=== PATIENT | female | born 1955 | race Caucasian/White ===

== ENCOUNTER 2017-06-20 09:53 | Outpatient (CLI) | payer BC ==
--- NOTE | 2017-06-20 10:23 | RAD ---
RIGHT HAND THREE VIEWS: History: Right hand pain. FINDINGS/IMPRESSION: The bones are osteopenic. No fracture or dislocation is identified. A negative ulnar variance is note d. There are mild degenerative changes. POS: [facility]
== END 2017-06-20 09:54 | disposition home or self-care (01) ==
LOC: RAD-FRANK 09:53
PROVIDERS: ATTEND Nurse Practitioner Family
DX: M79.641 Pain in right hand (principal); M19.041 Primary osteoarthritis, right hand; M85.841 Other specified disorders of bone density and structure, right hand

== ENCOUNTER 2019-08-13 10:31 | Outpatient (CLI) | payer BC ==
--- NOTE | 2019-08-13 10:45 | RAD ---
RADIOGRAPH CHEST 2 VIEW: DATE: 08/13/2019 HISTORY: 64-year-old female with chest wall pain FINDINGS: There is hyperinflation of the lungs, consistent with COPD. There is no evidence of airspace density, pulmonary edema, cardiomegaly, pleural effusion, or pneumothorax. Chronic biapical pulmonary changes, right greater than left. IMPRESSION: 1) No acute cardiopulmonary findings. 2) emphysema.
== END 2019-08-13 10:32 | disposition home or self-care (01) ==
LOC: RAD-FRANK 10:31
PROVIDERS: ATTEND Nurse Practitioner Family
DX: R07.89 Other chest pain (principal); J43.9 Emphysema, unspecified
CPT/HCPCS: 71046

== ENCOUNTER 2020-04-22 09:20 | Emergency (ER) | payer SELFPAY ==
--- NOTE | 2020-04-22 09:50 | RAD ---
Portable chest: HISTORY: Chest pain COMPARISON: 08/13/2019 FINDINGS: Lung peralta are clear. Heart and mediastinum appear unremarkable. Vascularity is normal. Visualized osseous structures unremarkable. IMPRESSION: No acute finding
[2020-04-22] MEDS ORDERED: Fentanyl 100 MCG/2 ML VIAL ONE (10:19)
[2020-04-22 10:34] LABS: Mean Corpuscular HGB CONC 32.6 g/dL (32.0-36.0); Mean Corpuscular Hemoglobin 36.5 pg (27.0-31.0); Mean Platelet Volume 7.2 fL (7.4-10.4); Platelet Count 288 thou/uL (130-400); RBC Distribution Width 13.2 % (11.5-14.5); Red Blood Cell (RBC) Count 3.85 mill/uL (4.20-5.40)
[2020-04-22 10:35] LABS: #Lymphocytes 1.1 thou/uL (1.20-3.40); #Monocytes 0.4 thou/uL (0.11-0.59); #Neutrophils 5.4 thou/uL (1.40-6.50); %Basophils 0.5 % (0.0-1.0); %Eosinophils 0.7 % (0.0-10.0); %Monocytes 5.5 % (0.0-10.0); %Neutrophils 77.4 % (42.0-75.0)
[2020-04-22 10:48] LABS: ALT (SGPT) 18 U/L (8-55); AST (SGOT) 37 U/L (5-34); Albumin 3.2 g/dL (3.4-4.8); Alkaline Phosphatase 245 U/L (40-110); Anion Gap 14 mmol/L (10-20); BUN (Urea Nitrogen) Less than 4 mg/dL (9.8-20.1); Bilirubin, Total 0.5 mg/dL (0.2-1.2); CK (CPK) 26 U/L (29-168); Calc. Creatinine Clearance 0 mL/min (70-130); Carbon Dioxide 24 mmol/L (23-31); Chloride 103 mmol/L (98-107); Globulin 2.9 g/dL (2.4-3.5); Glucose 84 mg/dL (80-115); Lipase 6 U/L (8-78); Potassium 4.3 mmol/L (3.5-5.1); Protein, Total 6.1 g/dL (5.8-8.1); Sodium 137 mmol/L (136-145)
[2020-04-22 11:00] LABS: MDiff Complete? YES; Macrocytosis SLIGHT = 6-15 cells (100X) (0-5/hpf); Platelet Morphology Comment Appears Adequate; Polychromasia SLIGHT = 2-3 cells (100X) (0-2/hpf); Stomatocytes SLIGHT = 2-5 cells (100X) (0-1/hpf)
--- NOTE | 2020-04-26 16:48 | EKG ---
Test Reason : Blood Pressure : / mmHG Vent. Rate : 089 BPM Atrial Rate : 089 BPM P-R Int : 124 ms QRS Dur : 074 ms QT Int : 378 ms P-R-T Axes : 080 075 072 degrees QTc Int : 459 ms Normal sinus rhythm Low voltage QRS Septal infarct , age undetermined Abnormal ECG Confirmed by MERLINE José, DAVID ([id number]), continuity editor HUBERT LEHMAN ([id number]) on 04/26/2020 4:48:29 PM Referred By: Confirmed By:DAVID RICK M.D.
== END 2020-04-22 12:35 | disposition home or self-care (01) ==
LOC: ERS 09:20
DX: R07.89 Other chest pain (principal); J43.9 Emphysema, unspecified; F17.210 Nicotine dependence, cigarettes, uncomplicated
CPT/HCPCS: 36415; 71045; 80053; 82550; 83690; 84484; 85025; 93005; 94760; 96374; J3010

== ENCOUNTER 2022-03-10 16:31 | Inpatient (IN) | payer BC, MEDICARE, SELFPAY ==
[2022-03-10 17:08] LABS: Hemoglobin 12.6 g/dL (12.0-16.0); Mean Corpuscular HGB CONC 31.9 g/dL (32.0-36.0); Mean Platelet Volume 7.1 fL (7.4-10.4); Platelet Count 338 10x3/uL (130-400); RBC Distribution Width 14.4 % (11.5-14.5); White Blood Cell (WBC) Count 14.3 10x3/uL (4.8-10.8)
[2022-03-10] MEDS ORDERED: cefTRIAXone\\ROCEPHIN 1 GM VIAL ONE (17:18)
[2022-03-10 17:21] LABS: ALT (SGPT) 11 U/L (8-55); AST (SGOT) 22 U/L (5-34); Albumin 2.8 g/dL (3.4-4.8); Alkaline Phosphatase 129 U/L (40-110); Anion Gap 21 mmol/L (10-20); BUN (Urea Nitrogen) 9 mg/dL (9.8-20.1); Bilirubin, Total 0.7 mg/dL (0.2-1.2); Calc. Creatinine Clearance 0 mL/min (70-130); Calcium 7.8 mg/dL (7.8-10.44); Carbon Dioxide 22 mmol/L (23-31); Chloride 92 mmol/L (98-107); Estimated GFR 100; Globulin 2.7 g/dL (2.4-3.5); Glucose 143 mg/dL (80-115); Potassium 5.6 mmol/L (3.5-5.1); Protein, Total 5.5 g/dL (5.8-8.1); Sodium 129 mmol/L (136-145)
[2022-03-10 17:29] LABS: Band 19 % (5-11); Lymphocytes 6 % (21-51); MDiff Complete? YES; Macrocytosis SLIGHT = 6-15 cells (100X) (0-5/hpf); Monocytes 6 % (0-10); Neutrophil 69 % (42-75); Platelet Morphology Comment Appears Adequate
[2022-03-10] MEDS ORDERED: Azithromycin 500 MG VIAL ONE (18:06)
[2022-03-10 20:00] VITALS: BMI 15.5
[2022-03-10] MEDS ORDERED: Ondansetron ODT 4 MG TAB PO PRN (21:59)
[2022-03-10] MEDS ORDERED: Acetaminophen 325 MG TAB PO PRN (21:59)
[2022-03-10] MEDS ORDERED: Acetaminophen 650 MG Suppository PR PRN (21:59)
[2022-03-10] MEDS ORDERED: Ondansetron PF 4 MG/2 ML Vial IVP PRN (21:59)
[2022-03-10 22:21] LABS: SARS-CoV-2 NAA Rapid Test Not Detected (NotDetected)
[2022-03-11] MEDS ORDERED: Ipratropium/Albuterol 3 ML NEB NEB PRN (00:25)
[2022-03-11] MEDS: Sodium Chloride 0.9% 1,000 ML IV SCH ×3 (00:46→20:44)
[2022-03-11 01:47] LABS: Anion Gap 14 mmol/L (10-20); BUN (Urea Nitrogen) 8 mg/dL (9.8-20.1); Calc. Creatinine Clearance 64 mL/min (70-130); Calcium 7.5 mg/dL (7.8-10.44); Carbon Dioxide 22 mmol/L (23-31); Chloride 99 mmol/L (98-107); Estimated GFR 104; Glucose 128 mg/dL (80-115); Potassium 4.1 mmol/L (3.5-5.1); Sodium 131 mmol/L (136-145)
[2022-03-11 05:09] LABS: Hemoglobin 9.8 g/dL (12.0-16.0); Mean Corpuscular HGB CONC 32.2 g/dL (32.0-36.0); Mean Corpuscular Hemoglobin 36.5 pg (27.0-31.0); Mean Platelet Volume 7.5 fL (7.4-10.4); Platelet Count 233 10x3/uL (130-400); RBC Distribution Width 14.6 % (11.5-14.5); Red Blood Cell (RBC) Count 2.69 mill/uL (4.20-5.40)
[2022-03-11 05:14] LABS: Anion Gap 14 mmol/L (10-20); BUN (Urea Nitrogen) 7 mg/dL (9.8-20.1); Calc. Creatinine Clearance 67 mL/min (70-130); Calcium 7.5 mg/dL (7.8-10.44); Carbon Dioxide 21 mmol/L (23-31); Chloride 101 mmol/L (98-107); Estimated GFR 105; Glucose 103 mg/dL (80-115); Sodium 132 mmol/L (136-145)
[2022-03-11 06:01] LABS: Band 12 % (5-11); Lymphocytes 6 % (21-51); MDiff Complete? YES; Monocytes 7 % (0-10); Neutrophil 75 % (42-75)
[2022-03-11] MEDS ORDERED: Acetaminophen 325 MG TAB ONE (13:17)
[2022-03-11] MEDS ORDERED: Acetaminophen 325 MG/10.15 ML UDCUP ONE (13:20)
[2022-03-11] MEDS ORDERED: Azithromycin 500 MG VIAL ONE (17:17)
[2022-03-11] MEDS ORDERED: cefTRIAXone\\ROCEPHIN 1 GM VIAL ONE (17:17)
[2022-03-11] MEDS: Azithromycin 500 MG in Sodium Chloride 0.9% 250 ML 250 ML IVPB SCH (17:34)
[2022-03-11] MEDS: cefTRIAXone\\ROCEPHIN 1 GM in Sodium Chloride 0.9% 100 ML IVPB SCH (17:35)
[2022-03-11] MEDS: Acetaminophen 650 MG/20.3 ML UDCUP PO PRN (20:58)
[2022-03-12] MEDS: Sodium Chloride 0.9% 1,000 ML IV SCH (04:52)
[2022-03-12] MEDS: Acetaminophen 650 MG/20.3 ML UDCUP PO PRN ×2 (08:19→19:12)
[2022-03-12] MEDS ORDERED: Acetaminophen W/ Codeine 5 ML UDCUP PO PRN (09:29)
[2022-03-12] MEDS ORDERED: Lidocaine 5% Patch TD SCH (09:30)
[2022-03-12] MEDS: tiZANidine HCl 4 MG TAB PO SCH ×2 (10:29→20:08)
[2022-03-12] MEDS ORDERED: Calcium Carbonate 500 MG ChewTAB PO PRN (14:27)
[2022-03-12] MEDS: cefTRIAXone\\ROCEPHIN 1 GM in Sodium Chloride 0.9% 100 ML IVPB SCH (16:44)
[2022-03-12] MEDS: Azithromycin 500 MG in Sodium Chloride 0.9% 250 ML 250 ML IVPB SCH (16:49)
[2022-03-12] MEDS: Budesonide 0.25 MG/2 ML NEB INH SCH (19:01)
[2022-03-12] MEDS: Ipratropium/Albuterol 3 ML NEB NEB PRN (19:02)
[2022-03-12] MEDS: guaiFENesin ER 600 MG TAB PO SCH (20:09)
[2022-03-12] MEDS: Transdermal Patch Removal TOP SCH (21:24)
[2022-03-13] MEDS ORDERED: Sodium Chloride 0.9% 500 ML IV SCH ×2 (01:15→01:45)
[2022-03-13] MEDS ORDERED: Benzonatate 100 MG CAP PO PRN (02:53)
[2022-03-13] MEDS: Ipratropium/Albuterol 3 ML NEB NEB PRN ×3 (02:53→18:55)
[2022-03-13] MEDS ORDERED: GUAIFENESIN SF SOLN 200 MG/10 ML UDCUP PO PRN (02:53)
[2022-03-13 06:32] LABS: #Monocytes 0.5 thou/uL (0.11-0.59); #Neutrophils 3.9 thou/uL (1.40-6.50); %Basophils 0.3 % (0.0-1.0); %Eosinophils 0.8 % (0.0-10.0); %Lymphocytes 18.1 % (21.0-51.0); %Monocytes 9.8 % (0.0-10.0); Hemoglobin 10.2 g/dL (12.0-16.0); Mean Corpuscular HGB CONC 31.9 g/dL (32.0-36.0); Mean Corpuscular Hemoglobin 37.5 pg (27.0-31.0); Platelet Count 293 10x3/uL (130-400); RBC Distribution Width 14.5 % (11.5-14.5); Red Blood Cell (RBC) Count 2.72 mill/uL (4.20-5.40); White Blood Cell (WBC) Count 5.5 10x3/uL (4.8-10.8)
[2022-03-13 06:51] LABS: Anion Gap 10 mmol/L (10-20); BUN (Urea Nitrogen) 6 mg/dL (9.8-20.1); Calc. Creatinine Clearance 80 mL/min (70-130); Carbon Dioxide 19 mmol/L (23-31); Chloride 114 mmol/L (98-107); Estimated GFR 110; Glucose 71 mg/dL (80-115); Potassium 3.2 mmol/L (3.5-5.1); Sodium 140 mmol/L (136-145)
[2022-03-13 06:54] LABS: Calcium 6.8 mg/dL (7.8-10.44)
[2022-03-13] MEDS: Budesonide 0.25 MG/2 ML NEB INH SCH ×2 (07:33→18:55)
[2022-03-13] MEDS: tiZANidine HCl 4 MG TAB PO SCH (08:13)
[2022-03-13] MEDS: guaiFENesin ER 600 MG TAB PO SCH ×2 (08:13→21:35)
[2022-03-13] MEDS: Lidocaine 5% Patch TD SCH (08:21)
[2022-03-13] MEDS ORDERED: Iopamidol-370 76% 500 ML 1 ML ONE (10:12)
[2022-03-13 10:20] LABS: Thyroid Stimulating Hormone 0.8044 uIU/mL (0.35-4.94); Vitamin B12 534 pg/mL (211-911); Vitamin D, 25 Hydroxy Less than 3.4 ng/ml (> 30.0)
[2022-03-13] MEDS: Calcium Carbonate 500 MG ChewTAB PO SCH ×3 (11:34→20:34)
[2022-03-13] MEDS: Acetaminophen 650 MG/20.3 ML UDCUP PO PRN (11:37)
[2022-03-13] MEDS ORDERED: Albumin 25% 25 GM/100 ML BOT IVPB SCH (12:00)
[2022-03-13] MEDS: cefTRIAXone\\ROCEPHIN 1 GM in Sodium Chloride 0.9% 100 ML IVPB SCH (17:11)
[2022-03-13] MEDS: Azithromycin 500 MG in Sodium Chloride 0.9% 250 ML 250 ML IVPB SCH (17:16)
[2022-03-13] MEDS ORDERED: Cepastat Lozenges 1 LOZ PO PRN (20:57)
[2022-03-13] MEDS: Transdermal Patch Removal TOP SCH (21:35)
[2022-03-14] MEDS: Budesonide 0.25 MG/2 ML NEB INH SCH ×2 (07:04→19:13)
[2022-03-14 07:38] LABS: Iron 16 ug/dL (50-170); Iron Binding Capacity, Total 66 mcg/dL (265-497)
[2022-03-14] MEDS ORDERED: Ergocalciferol 1.25 MG(50,000 UNITS) CAP PO SCH (09:00)
[2022-03-14] MEDS: Calcium Carbonate 500 MG ChewTAB PO SCH ×4 (09:24→20:30)
[2022-03-14] MEDS: Folic Acid 1 MG TAB PO SCH (09:24)
[2022-03-14] MEDS: Lidocaine 5% Patch TD SCH (09:24)
[2022-03-14] MEDS: guaiFENesin ER 600 MG TAB PO SCH ×2 (09:24→21:22)
[2022-03-14 16:43] LABS: Campy jejuni + coli by PCR Negative (Negative); STEC Shiga Toxin 1+2 Negative (Negative); Salmonella spp. by PCR Negative (Negative); Shigella spp + EIEC by PCR Negative (Negative)
[2022-03-14] MEDS: cefTRIAXone\\ROCEPHIN 1 GM in Sodium Chloride 0.9% 100 ML IVPB SCH (17:02)
[2022-03-14] MEDS: Ipratropium/Albuterol 3 ML NEB NEB PRN (19:13)
[2022-03-14] MEDS: Transdermal Patch Removal TOP SCH (21:22)
[2022-03-15] MEDS: Budesonide 0.25 MG/2 ML NEB INH SCH ×2 (06:56→18:47)
[2022-03-15 08:29] LABS: #Eosinphils 0.1 thou/uL (0.0-0.7); #Lymphocytes 0.7 thou/uL (1.20-3.40); #Monocytes 0.7 thou/uL (0.11-0.59); #Neutrophils 6.6 thou/uL (1.40-6.50); %Basophils 0.3 % (0.0-1.0); %Lymphocytes 8.3 % (21.0-51.0); %Monocytes 8.3 % (0.0-10.0); %Neutrophils 82.1 % (42.0-75.0); Hemoglobin 10.7 g/dL (12.0-16.0); Mean Corpuscular HGB CONC 31.1 g/dL (32.0-36.0); Mean Corpuscular Hemoglobin 35.8 pg (27.0-31.0); Mean Platelet Volume 9.1 fL (7.4-10.4); Platelet Count 170 10x3/uL (130-400); Red Blood Cell (RBC) Count 2.99 mill/uL (4.20-5.40); White Blood Cell (WBC) Count 8.1 10x3/uL (4.8-10.8)
[2022-03-15] MEDS: Lidocaine 5% Patch TD SCH (09:27)
[2022-03-15] MEDS: guaiFENesin ER 600 MG TAB PO SCH ×2 (09:28→19:54)
[2022-03-15] MEDS: Calcium Carbonate 500 MG ChewTAB PO SCH ×4 (09:28→19:54)
[2022-03-15] MEDS: Folic Acid 1 MG TAB PO SCH (09:28)
[2022-03-15 10:41] LABS: ALT (SGPT) 30 U/L (8-55); AST (SGOT) 37 U/L (5-34); Alkaline Phosphatase 117 U/L (40-110); Anion Gap 17 mmol/L (10-20); BUN (Urea Nitrogen) 6 mg/dL (9.8-20.1); Bilirubin, Total 0.2 mg/dL (0.2-1.2); Calc. Creatinine Clearance 78 mL/min (70-130); Calcium 7.1 mg/dL (7.8-10.44); Carbon Dioxide 17 mmol/L (23-31); Chloride 112 mmol/L (98-107); Estimated GFR 109; Globulin 3.1 g/dL (2.4-3.5); Glucose 76 mg/dL (80-115); Potassium 4.3 mmol/L (3.5-5.1); Protein, Total 5.1 g/dL (5.8-8.1); Sodium 142 mmol/L (136-145)
[2022-03-15 15:05] LABS: EliA Celiac New Method **** NEW METHOD ****; t-Transglutaminase (tTG) IgA 0.6 EliAU/mL (<7 Negative); t-Transglutaminase (tTG) IgG 0.7 EliAU/mL (<7 Negative)
[2022-03-15] MEDS: cefTRIAXone\\ROCEPHIN 1 GM in Sodium Chloride 0.9% 100 ML IVPB SCH (16:50)
[2022-03-15] MEDS: Ipratropium/Albuterol 3 ML NEB NEB PRN (18:48)
[2022-03-15] MEDS: Transdermal Patch Removal TOP SCH (21:10)
[2022-03-16] MEDS: Budesonide 0.25 MG/2 ML NEB INH SCH ×2 (06:46→18:40)
[2022-03-16] MEDS: Lidocaine 5% Patch TD SCH (09:31)
[2022-03-16] MEDS: guaiFENesin ER 600 MG TAB PO SCH ×2 (09:31→20:16)
[2022-03-16] MEDS: Folic Acid 1 MG TAB PO SCH (09:31)
[2022-03-16] MEDS: Calcium Carbonate 500 MG ChewTAB PO SCH ×4 (09:31→20:16)
[2022-03-16] MEDS: cefTRIAXone\\ROCEPHIN 1 GM in Sodium Chloride 0.9% 100 ML IVPB SCH (17:41)
[2022-03-16] MEDS ORDERED: GoLYTELY 4,000 ml Bottle PO SCH (18:00)
[2022-03-16] MEDS: Ipratropium/Albuterol 3 ML NEB NEB PRN (18:38)
[2022-03-16] MEDS: Transdermal Patch Removal TOP SCH (23:01)
[2022-03-17] MEDS: Ipratropium/Albuterol 3 ML NEB NEB PRN (07:28)
[2022-03-17] MEDS: Budesonide 0.25 MG/2 ML NEB INH SCH ×2 (07:28→18:42)
[2022-03-17] MEDS: guaiFENesin ER 600 MG TAB PO SCH ×2 (07:43→21:22)
[2022-03-17] MEDS: Calcium Carbonate 500 MG ChewTAB PO SCH ×4 (08:37→20:02)
[2022-03-17] MEDS: Lidocaine 5% Patch TD SCH (08:37)
[2022-03-17] MEDS ORDERED: PROPOFOL 200 MG/20 ML VIAL ONE (10:38)
[2022-03-17] MEDS: Folic Acid 1 MG TAB PO SCH (12:43)
[2022-03-17 16:10] LABS: Fatty Acid Droplets Normal (.); Neutral Fats And/Or Soaps Normal (.)
[2022-03-17] MEDS: cefTRIAXone\\ROCEPHIN 1 GM in Sodium Chloride 0.9% 100 ML IVPB SCH (17:23)
[2022-03-17] MEDS: Transdermal Patch Removal TOP SCH (22:53)
[2022-03-17] MEDS: Cholestyramine/Aspartame 4 gm Packet PO SCH (23:19)
[2022-03-18] MEDS: Ipratropium/Albuterol 3 ML NEB NEB PRN ×2 (07:08→18:40)
[2022-03-18] MEDS: Budesonide 0.25 MG/2 ML NEB INH SCH ×2 (07:08→18:40)
[2022-03-18 07:16] LABS: #Eosinphils 0.1 thou/uL (0.0-0.7); #Lymphocytes 0.8 thou/uL (1.20-3.40); #Monocytes 0.7 thou/uL (0.11-0.59); #Neutrophils 9.9 thou/uL (1.40-6.50); %Eosinophils 0.7 % (0.0-10.0); %Neutrophils 86.3 % (42.0-75.0); Hemoglobin 9.7 g/dL (12.0-16.0); Mean Corpuscular HGB CONC 32.1 g/dL (32.0-36.0); Mean Corpuscular Hemoglobin 36.1 pg (27.0-31.0); Platelet Count 444 10x3/uL (130-400); RBC Distribution Width 14.8 % (11.5-14.5); Red Blood Cell (RBC) Count 2.68 mill/uL (4.20-5.40); White Blood Cell (WBC) Count 11.5 10x3/uL (4.8-10.8)
[2022-03-18] MEDS: Lidocaine 5% Patch TD SCH (08:55)
[2022-03-18] MEDS: Cholestyramine/Aspartame 4 gm Packet PO SCH ×2 (08:56→21:12)
[2022-03-18] MEDS: guaiFENesin ER 600 MG TAB PO SCH ×2 (08:56→21:12)
[2022-03-18] MEDS: Calcium Carbonate 500 MG ChewTAB PO SCH ×4 (08:56→21:12)
[2022-03-18] MEDS: Folic Acid 1 MG TAB PO SCH (08:56)
[2022-03-18] MEDS: cefTRIAXone\\ROCEPHIN 1 GM in Sodium Chloride 0.9% 100 ML IVPB SCH (17:33)
[2022-03-18] MEDS: Transdermal Patch Removal TOP SCH (21:13)
[2022-03-19 06:33] LABS: #Eosinphils 0.1 thou/uL (0.0-0.7); #Lymphocytes 0.9 thou/uL (1.20-3.40); #Monocytes 0.8 thou/uL (0.11-0.59); #Neutrophils 12.2 thou/uL (1.40-6.50); %Basophils 0.3 % (0.0-1.0); %Eosinophils 0.5 % (0.0-10.0); %Lymphocytes 6.5 % (21.0-51.0); %Monocytes 5.6 % (0.0-10.0); %Neutrophils 87.1 % (42.0-75.0); Hemoglobin 10.4 g/dL (12.0-16.0); Mean Corpuscular HGB CONC 31.9 g/dL (32.0-36.0); Mean Corpuscular Hemoglobin 35.6 pg (27.0-31.0); Mean Platelet Volume 6.7 fL (7.4-10.4); Platelet Count 485 10x3/uL (130-400); RBC Distribution Width 14.8 % (11.5-14.5); Red Blood Cell (RBC) Count 2.94 mill/uL (4.20-5.40)
[2022-03-19] MEDS: Budesonide 0.25 MG/2 ML NEB INH SCH ×2 (07:20→18:45)
[2022-03-19] MEDS: Calcium Carbonate 500 MG ChewTAB PO SCH ×4 (09:11→20:49)
[2022-03-19] MEDS: Folic Acid 1 MG TAB PO SCH (09:11)
[2022-03-19] MEDS: Nystatin 500,000 UNITS/5 ML UDCUP SSW SCH ×4 (09:11→20:54)
[2022-03-19] MEDS: Lidocaine 5% Patch TD SCH (09:11)
[2022-03-19] MEDS: guaiFENesin ER 600 MG TAB PO SCH ×2 (09:12→20:50)
[2022-03-19] MEDS: Cholestyramine/Aspartame 4 gm Packet PO SCH ×2 (11:02→22:04)
[2022-03-19] MEDS: cefTRIAXone\\ROCEPHIN 1 GM in Sodium Chloride 0.9% 100 ML IVPB SCH (17:08)
[2022-03-19] MEDS: Ampicillin/Sulbactam 3 GM in Sodium Chloride 0.9% 100 ML IVPB SCH ×2 (19:45→23:55)
[2022-03-19] MEDS: Transdermal Patch Removal TOP SCH (20:58)
[2022-03-20] MEDS: Ampicillin/Sulbactam 3 GM in Sodium Chloride 0.9% 100 ML IVPB SCH ×3 (05:31→16:58)
[2022-03-20 06:56] LABS: #Eosinphils 0.1 thou/uL (0.0-0.7); #Lymphocytes 1.4 thou/uL (1.20-3.40); #Monocytes 0.7 thou/uL (0.11-0.59); #Neutrophils 12.2 thou/uL (1.40-6.50); %Basophils 0.3 % (0.0-1.0); %Eosinophils 0.5 % (0.0-10.0); %Lymphocytes 9.6 % (21.0-51.0); %Monocytes 5.1 % (0.0-10.0); %Neutrophils 84.5 % (42.0-75.0); Hemoglobin 9.3 g/dL (12.0-16.0); Mean Corpuscular HGB CONC 30.7 g/dL (32.0-36.0); Mean Corpuscular Hemoglobin 34.2 pg (27.0-31.0); Platelet Count 447 10x3/uL (130-400); RBC Distribution Width 14.7 % (11.5-14.5); White Blood Cell (WBC) Count 14.5 10x3/uL (4.8-10.8)
[2022-03-20 07:42] VITALS: TEMP 97.8
[2022-03-20] MEDS: Lidocaine 5% Patch TD SCH (08:12)
[2022-03-20] MEDS: Folic Acid 1 MG TAB PO SCH (08:12)
[2022-03-20] MEDS: Calcium Carbonate 500 MG ChewTAB PO SCH ×3 (08:12→16:47)
[2022-03-20] MEDS: Nystatin 500,000 UNITS/5 ML UDCUP SSW SCH ×3 (08:12→16:47)
[2022-03-20] MEDS: guaiFENesin ER 600 MG TAB PO SCH (08:13)
[2022-03-20] MEDS: Budesonide 0.25 MG/2 ML NEB INH SCH (10:38)
[2022-03-20] MEDS: Cholestyramine/Aspartame 4 gm Packet PO SCH (10:54)
[2022-03-20] MEDS ORDERED: Sodium Chloride 0.9% 500 ML IV SCH (13:45)
[2022-03-20 16:35] VITALS: BP 105/67
[2022-03-20 17:11] LABS: #Basophils 0.1 thou/uL (0.0-0.2); #Lymphocytes 1.1 thou/uL (1.20-3.40); #Monocytes 0.8 thou/uL (0.11-0.59); #Neutrophils 12.3 thou/uL (1.40-6.50); %Basophils 0.3 % (0.0-1.0); %Eosinophils 0.3 % (0.0-10.0); %Lymphocytes 7.7 % (21.0-51.0); %Monocytes 5.3 % (0.0-10.0); %Neutrophils 86.3 % (42.0-75.0); Hemoglobin 9.5 g/dL (12.0-16.0); Mean Corpuscular Hemoglobin 35.3 pg (27.0-31.0); Mean Platelet Volume 6.6 fL (7.4-10.4); Platelet Count 525 10x3/uL (130-400); RBC Distribution Width 14.7 % (11.5-14.5); Red Blood Cell (RBC) Count 2.68 mill/uL (4.20-5.40); White Blood Cell (WBC) Count 14.2 10x3/uL (4.8-10.8)
== END 2022-03-20 18:35 | disposition home or self-care (01) | DRG 871 ==
LOC: ERS 16:31 → ERHOLD 18:25 → T4-A 03-11 18:35
PROVIDERS: ADMIT Internal Medicine; ATTEND Family Medicine
PROC: 3E03329 Introduction of Other Anti-infective into Peripheral Vein, Percutaneous Approach (ICD-10-PCS; 2022-03-10)
PROC: 0DB98ZX Excision of Duodenum, Via Natural or Artificial Opening Endoscopic, Diagnostic (ICD-10-PCS; principal; 2022-03-17)
PROC: 0DB88ZX Excision of Small Intestine, Via Natural or Artificial Opening Endoscopic, Diagnostic (ICD-10-PCS; 2022-03-17)
PROC: 0DBG8ZX Excision of Left Large Intestine, Via Natural or Artificial Opening Endoscopic, Diagnostic (ICD-10-PCS; 2022-03-17)
PROC: 0DBF8ZX Excision of Right Large Intestine, Via Natural or Artificial Opening Endoscopic, Diagnostic (ICD-10-PCS; 2022-03-17)
DX: A41.9 Sepsis, unspecified organism (principal); E43 Unspecified severe protein-calorie malnutrition; J18.9 Pneumonia, unspecified organism; J69.0 Pneumonitis due to inhalation of food and vomit; E87.1 Hypo-osmolality and hyponatremia; E87.20 Acidosis, unspecified; Z68.1 Body mass index [BMI] 19.9 or less, adult; K22.10 Ulcer of esophagus without bleeding; J43.9 Emphysema, unspecified; K52.9 Noninfective gastroenteritis and colitis, unspecified; E87.5 Hyperkalemia; E88.09 Other disorders of plasma-protein metabolism, not elsewhere classified; E55.9 Vitamin D deficiency, unspecified; D53.9 Nutritional anemia, unspecified; K44.9 Diaphragmatic hernia without obstruction or gangrene; E21.3 Hyperparathyroidism, unspecified; Z20.822 Contact with and (suspected) exposure to COVID-19; Z98.890 Other specified postprocedural states; Z88.8 Allergy status to other drugs, medicaments and biological substances; Z90.710 Acquired absence of both cervix and uterus; Z79.899 Other long term (current) drug therapy
CPT/HCPCS: 36415; 71045; 71260; 74177; 80048; 80053; 82306; 82607; 82705; 83516; 83540; 83550; 83605; 83630; 83880; 83970; 84145; 84439; 84443; 84481; 84484; 85025; 87040; 87324; 87449; 87505; 87811; 88305; 93005; 94640; 94760; 94799; 96365; 96367; J0295; J0456; J0696; J1650; J2704; J3490; J7030; J7050; J7620; J7626; P9047; Q0162; Q9967; U0002

== ENCOUNTER 2022-10-05 15:01 | Outpatient (CLI) | payer MEDICARE | END 2022-10-05 15:02 | disposition home or self-care (01) | LOC: RAD-FRANK 15:01 | PROVIDERS: ATTEND Nurse Practitioner Family | DX: M19.042 Primary osteoarthritis, left hand (principal); M79.89 Other specified soft tissue disorders ==

== ENCOUNTER 2024-11-16 23:22 | Observation (INO) | payer MEDICARE ==
[2024-11-16 23:50] LABS: #Basophils 0.07 10x3/uL (0.0-0.2); #Eosinophils 0.69 10x3/uL (0.0-0.7); #Monocytes 0.74 10x3/uL (0.11-0.59); #Neutrophils 7.15 10x3/uL (1.40-6.50); %Basophils 0.7 % (0.0-1.0); %Eosinophils 6.7 % (0.0-10.0); %Lymphocytes 14.9 % (21.0-51.0); %Monocytes 7.2 % (0.0-10.0); %Neutrophils 69.3 % (42.0-75.0); Hematocrit 41.6 % (36.0-47.0); Hemoglobin 12.5 g/dL (12.0-16.0); Mean Corpuscular Hemoglobin 27.3 pg (27.0-31.0); Mean Corpuscular Volume 90.8 fL (78.0-98.0); Platelet Count 367 10x3/uL (130-400); Red Blood Cell (RBC) Count 4.58 mill/uL (4.20-5.40); White Blood Cell (WBC) Count 10.30 10x3/uL (4.8-10.8)
[2024-11-17 00:29] LABS: ALT (SGPT) 7 U/L (Less than 34); AST (SGOT) 17 U/L (11-34); Albumin 3.3 g/dL (3.1-4.5); Alkaline Phosphatase 108 U/L (40-110); Anion Gap 16 mmol/L (10-20); BUN (Urea Nitrogen) 6 mg/dL (9.8-20.1); Bilirubin, Total 0.4 mg/dL (0.3-1.2); Calc. Creatinine Clearance 0 mL/min (70-130); Calcium 8.7 mg/dL (7.8-10.44); Carbon Dioxide 23 mmol/L (23-31); Chloride 101 mmol/L (98-107); Globulin 3.3 g/dL (2.4-3.5); Glucose 95 mg/dL (80-115); Potassium 4.1 mmol/L (3.5-5.1); Sodium 136 mmol/L (136-145)
[2024-11-17] MEDS ORDERED: Azithromycin 500 MG VIAL ONE (03:10)
[2024-11-17] MEDS ORDERED: Acetaminophen 325 MG TAB PO PRN (03:23)
[2024-11-17] MEDS ORDERED: Senokot S 8.6-50 MG TAB PO PRN (03:23)
[2024-11-17] MEDS ORDERED: Ondansetron PF 4 MG/2 ML Vial IVP PRN (03:23)
[2024-11-17] MEDS ORDERED: Guaifenesin DM 100-10/5 ML UDCUP PO PRN (03:23)
[2024-11-17] MEDS ORDERED: Calcium Carbonate 500 MG ChewTAB PO PRN (03:23)
[2024-11-17 04:57] VITALS: BMI 14.7
[2024-11-17 05:30] LABS: Influenza A by NAA Not Detected (NotDetected); Influenza B by NAA Not Detected (NotDetected); RSV by NAA Not Detected (NotDetected); SARS-CoV-2 NAA Rapid Test Not Detected (NotDetected)
[2024-11-17] MEDS: Mometasone 200 MCG/Formoterol 5 MCG 120 PUFF INHALER INH SCH (06:40)
[2024-11-17 08:57] VITALS: TEMP 97.9
[2024-11-17] MEDS: Enoxaparin 40 MG (0.4 mL) SYRINGE SC SCH (08:57)
[2024-11-17] MEDS: Calcium Carbonate 600 MG + Vit D TAB PO SCH (08:57)
[2024-11-17] MEDS: Pantoprazole 40 MG DR.TAB PO SCH (08:57)
[2024-11-17] MEDS: Multivit, Therapeutic 1 TAB PO SCH (08:57)
[2024-11-17 16:42] VITALS: BP 117/60
[2024-11-18] MEDS ORDERED: predniSONE 20 MG TAB PO SCH (08:00)
[2024-11-18] MEDS ORDERED: Enoxaparin 30 MG (0.3 mL) SYRINGE SC SCH (09:00)
[2024-11-18] MEDS ORDERED: Azithromycin 250 MG TAB PO SCH (09:00)
== END 2024-11-17 18:10 | disposition home or self-care (01) ==
LOC: ERS 23:22 → OBS 11-17 03:28
PROVIDERS: ADMIT Student in an Organized Health Care Education/Training Program; ATTEND Family Medicine
DX: J44.1 Chronic obstructive pulmonary disease with (acute) exacerbation (principal); J96.11 Chronic respiratory failure with hypoxia; R65.10 Systemic inflammatory response syndrome (SIRS) of non-infectious origin without acute organ dysfunction; Z99.81 Dependence on supplemental oxygen; Z87.891 Personal history of nicotine dependence; Z88.6 Allergy status to analgesic agent; Z79.51 Long term (current) use of inhaled steroids; Z79.899 Other long term (current) drug therapy
CPT/HCPCS: 71045; 80053; 83880; 84484; 85025; 87637; 93005; 94640 ×3; 94664; 94760; 97116; J0456; J1650; J2919 ×2; 96365; 96372; 96375; 96376; G0378